=== PATIENT | female | born 1995 | race Caucasian/White ===

== ENCOUNTER 2024-09-12 11:04 | Emergency (ER) | payer BC, SELFPAY ==
[2024-09-12 11:06] VITALS: BP 138/70; PULSE 86; RESP 18; TEMP 36.8; O2SAT 97; BMI 38.0
--- NOTE | 2024-09-12 11:17 | XR_ITS ---
FINAL REPORT CLINICAL HISTORY: Dropped safe on to left knee. Left knee pain. FINDINGS: Left knee Three views were obtained. There is no fracture or dislocation. The joint spaces appear normal. No soft tissue abnormality is identified. IMPRESSION: No acute process. Reviewed, Interpreted and Dictated by Derick Bergman MD Transcribed by Mariaelena Rivera Authenticated and [facility]
--- NOTE | 2024-09-12 11:38 | PC.NURSE ---
PT RETURNED FROM XR
[2024-09-12 12:18] VITALS: BP 135/73; PULSE 76
--- NOTE | 2024-09-12 12:19 | PC.NURSE ---
PT MEDICATED AND UPDATED ON POC
[2024-09-12] MEDS: ACETAMINOPHEN 500MG TAB 1000 MG PO (12:20)
[2024-09-12] MEDS: IBUPROFEN 400 MG TABLET 800 MG PO (12:20)
--- NOTE | 2024-09-12 12:49 | ED_ITS ---
Discharge Plan Disposition Patient Disposition: Home, Self-Care Chief Complaint: PAIN Prescriptions Prescriptions: No Action Nexplanon 68 mg implant SUBDERMAL sertraline 100 mg tablet 100 mg PO DAILY Patient Comments: TAKE 1 TABLET BY MOUTH EVERY DAY Referrals Follow up/Referrals: Dhiraj Stratton MD [Primary Care Provider] - See instructions Niall Killian DO [Staff Physician] - See instructions Activity Restrictions/Add. Instructions Additional Instructions/Restrictions: Call your family doctor to establish care for this visit to the emergency department and schedule follow-up within 48 hours to ensure improvement. If you have any worsening of your condition or any other concerning signs or symptoms, return to the emergency department or your primary care doctor for further evaluation. If you continue having pain with Tylenol and Motrin, consider calling Dr. Killian's office for further follow-up and potential MRI of that knee. Information here. Clinical Impressions Clinical Impression: Knee pain, left Print Language Print Language: [place] Discharge ED Provider: Alfred Adamson General Adult HPI General Chief complaint: PAIN Stated complaint: AO 09/11/24, left knee inj Time Seen by Provider: 09/12/24 11:17 Mode of Arrival: Ambulatory Source of Information: Patient Limitations: No Limitations Description of Symptoms (Recalled from ER Triage Doc. by RN): PT C/O LEFT KNEE PAIN AFTER MOVING A GUN SAFE YESTERDAY WHEN IT FELL ON HER LEG, ABLE TO BARE WEIGH BUT HAS PAIN History of Present Illness HPI narrative: Please note that above description of symptoms, in this electronic medical record under categorization of recalled from ER triage doctor by RN are reflective of an initial nursing assessment, however, is not reflective of my full history and physical exam that was personally taken and clarified. Consequentially, this preceding description of symptoms, which may include the patient's categorized chief complaint in the EMR, do not reflect my personal clinical impression, and the ultimate description of history of present illness and patient stated complaints should be deferred to this section of the note. Unless stated otherwise or congruent with this section of the note, additional signs, symptoms, or incongruence should be interpreted as inaccurate with my clinical impression. Related Data Home Medications ?Medication ?Instructions ?Recorded ?Confirmed etonogestrel 68 mg subdermal subdermal 03/08/21 04/24/24 implant (Nexplanon) sertraline 100 mg tablet 100 mg PO DAILY 04/24/24 04/24/24 Allergies Allergy/AdvReac Type Severity Reaction Status Date / Time NO KNOWN ALLERGIES - NKA Allergy Mild Uncoded 04/24/24 08:27 [facility] Disclaimer: The information contained in this section may have been updated after the patient was seen, as this information can be updated by other users. Medical History (Updated 09/12/24 @ 12:52 by Alfred Adamson MD) Encounter for removal and reinsertion of Nexplanon Anxiety Depression Surgical History (Updated 04/24/24 @ 08:33 by RAJWINDER Wynne) No significant past surgical history Family History (Updated 04/24/24 @ 08:34 by RAJWINDER Wynne) Other Cancer Diabetes Hypertension Social History Smoking Status: Current every day smoker alcohol intake: never substance use type: denies use current occupational status: employed Travel in the last 8 weeks: None Have you lived/traveled outside [place] in past 30 days?: No Contact w/someone who lives/traveled outside [place] past 30 days?: No Exposure to someone with infectious disease in past 14 days?: No Do you have a fever (greater than 100.4 F or 38 C)?: No Have you tested positive for COVID-19: No Exposed to someone with COVID-19 in past 14 days?: No Do you have a sore throat?: No Do you have a cough?: No Do you have any weakness?: No Do you have any diarrhea?: No Are you experiencing any unusual bleeding?: No Do you have any muscle aches/pain?: No Do you have any abdominal pain?: No Are you experiencing loss of taste or smell?: No Other Medical History Have you received the Flu Vaccine for this season: No Have you received the Pneumonia Vaccine: No ROS Obtained: Yes All systems reviewed & no additional complaints except as documented Physical Exam General General appearance: alert Head Head exam: atraumatic and normocephalic Eye Eye exam: Present normal appearance, PERRL and EOMI Neck Neck exam: Present normal inspection, full ROM and trachea midline Respiratory Respiratory exam: Absent respiratory distress, wheezes, stridor, accessory muscle use or prolonged expiratory phase Cardiovascular Cardiovascular exam: Present other (Pulses equal symmetric in upper and lower extremities) Abdominal Exam Abdominal exam: Present soft; Absent distention, tenderness or pulsatile mass Extremities Exam Extremities exam: Present other (Minimal bruising medial aspect of right knee just proximal to joint space. Structurally and neurologically and vascularly intact); Absent edema Neurological Exam Neurological exam: Present alert, oriented X3 and CN II-XII intact; Absent motor sensory deficit Skin Skin exam: Present warm and dry; Absent diaphoresis or erythema Medical Decision Making Medical Records Medical records reviewed: Yes I reviewed the patient's medical records. Screening: Per USPSTF and CDC recommendations, given the prevalence of disease in our region, it is our hospital?s policy to screen for HIV and viral Hepatitis for all patients aged 18 and over and those with ongoing risk factors. Travis Inquiry Pt receiving controlled substance: No Travis was queried for this patient: No Vital Signs: 09/12/24 11:06 09/12/24 12:18 Temperature 98.2 F Temperature Source Oral Pulse Rate 76 Pulse Rate [Radial] 86 Respiratory Rate 18 Blood Pressure 135/73 Blood Pressure [Left Arm] 138/70 Blood Pressure Mean [Left Arm] 92 Blood Pressure Source Automatic Cuff Blood Pressure Source [Left Arm] Automatic Cuff Blood Pressure Position Sitting Blood Pressure Position [Left Arm] Sitting 02 Sat by Pulse Oximetry 97 Oxygen Delivery Method Room Air Orders (Tests/Meds): ED MEDICATIONS Discontinued Medications Generic Name Dose Route Start Last Admin Trade Name Freq PRN Reason Stop Dose Admin Acetaminophen 1,000 mg 09/12/24 12:19 09/12/24 12:20 Acetaminophen 500mg Tab PO 09/12/24 12:20 1,000 mg ONCE ONE Administration Ibuprofen 800 mg 09/12/24 12:19 09/12/24 12:20 Ibuprofen 400 Mg Tablet PO 09/12/24 12:20 800 mg ONCE ONE Administration ORDERS Category Date Time Status Knee XR left 3 views [XR knee LT 3V] Stat Exams 09/12/24 11:17 Completed Medical Decision Narrative: 29-year-old female presenting with minor knee trauma. Happened yesterday, 09/11. Was moving a gun safe, gun safe fell and landed on her knees. Has been able to walk, but is having pain since that time lateral aspect of left knee. Neurologically intact, structurally intact, minimal pain on my evaluation. Patellar glide normal, no obvious evidence of outward abnormality otherwise. History obtained with patient. Differential includes benign MSK trauma, sprain, strain, fracture, among others. Patient was given Tylenol and Motrin. X-rays ordered and independently interpreted and with no acute abnormality. Because patient at baseline without signs or symptoms of clinical decompensation, deemed appropriate for discharge. Results were relayed to patient who voiced understanding and were agreeable to outpatient management and follow up. I discussed my clinical impression with patient and answered all questions. At this time, the evidence for any other entities in the differential is insufficient to warrant any further testing or ED observation. This was explained as well. Advisory was given that persistent or worsening symptoms require further evaluation. I confirmed the understanding of this discussion. Internal Investigator disclaimer Much of this encounter note is an electronic special education itinerant teacher spoken language to printed text. Electronic special education itinerant teacher of the spoken language may permit errors. Although I have reviewed the note, some errors may still exist. Critical Care Critical Care Time Critical Care Time: No
[2024-09-12 13:04] VITALS: BP 127/78; PULSE 65; RESP 18; TEMP 36.7; O2SAT 99
== END 2024-09-12 13:05 | disposition home or self-care (01) ==
PROVIDERS: Emergency Provider Emergency Medicine; PCP Family Medicine
DX: M25.562 Pain in left knee (principal); X50.0XXA Overexertion from strenuous movement or load, initial encounter; Y93.89 Activity, other specified; Y92.9 Unspecified place or not applicable
CPT/HCPCS: 73562; 99283